=== PATIENT | female | born 1950 | race Caucasian/White ===

== ENCOUNTER 2022-11-27 12:35 | Emergency (ER) | payer OTHER, MEDICARE ==
[2022-11-27 12:54] VITALS: BP 157/90; PULSE 60; RESP 16; TEMP 98; BMI 30.6
== END 2022-11-27 15:10 | disposition home or self-care (01) ==
LOC: FER 12:35
DX: S40.012A Contusion of left shoulder, initial encounter (principal); M25.512 Pain in left shoulder; W01.0XXA Fall on same level from slipping, tripping and stumbling without subsequent striking against object, initial encounter; Y92.019 Unspecified place in single-family (private) house as the place of occurrence of the external cause
CPT/HCPCS: 73030-TC-LT-FY; 99283-25